=== PATIENT | female | born 1995 | race Caucasian/White ===

== ENCOUNTER 2016-10-07 01:42 | Emergency (ER) | payer OTHER ==
[~2016-10-07] VITALS: Ht 160 cm; Wt 58.6 kg
[2016-10-07 01:43] VITALS: TEMP 36.5; O2SAT 99; Ht 160 cm; Wt 58.6 kg
[2016-10-07 03:24] LABS: CALCIUM 7.9 mg/dl (8.5-10.1); CREATININE 0.84 mg/dl (0.60-1.20); POTASSIUM 3.3 mmol/L (3.5-5.1)
[2016-10-07 07:31] VITALS: BP 114/82; PULSE 102; O2SAT 98
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
== END 2016-10-07 07:35 | disposition home or self-care (01) ==
LOC: C.EDB 01:46
DX: F10.129 Alcohol abuse with intoxication, unspecified (principal)